=== PATIENT | male | born 1965 | race Caucasian/White ===

== ENCOUNTER 2020-07-29 08:56 | Outpatient (CLI) | payer OTHER, SELFPAY ==
--- NOTE | 2020-09-13 10:31 | WPDHOMESLEEP ---
Sleep Study - Home Unattended Date of Study: 07/29/20 Ordering Provider: Roselia Garcia MD Interpreting Physician: Roselia Garcia MD Home Sleep Study Type: Apnea Link Air Height: 1.8 m Weight: 113.398 kg Body Mass Index: 34.8 Neck Circumference (inches): 19 [place]: 9 Reason for Sleep Study Fatigue, excessive daytime sleepiness Sleep History Wayne Mckinney is a 55 year old male with loud snoring, restless sleep multiple awakenings at night, and need for naps during the day. He does have dreams at night. Does have leg cramps and Charley horses. He does not grind his teeth. He had sleepwalking in childhood. Both parents had sleep apnea as well as his brother. He is tired at even after sleeping 8-10 hours. It is getting worse over the last 4-5 years. He rarely has trouble sleep with a cold. He does not wake up gasping for breath at night. He rarely has breathing problems at night reported to him by others. He rarely sweats excessively at night. He does not notice his heart pounding or beating irregularly night. He constantly falls asleep during the day, rarely involuntarily, never while driving. He does not fall asleep during physical effort. He does not have loss of muscle tone with strong emotion. He occasionally has trouble during the day due S of sleepiness, works as a [employer] ticket cashier he does not feel paralyzed on waking or falling asleep and does not have vivid dreamlike scenes upon awakening or falling asleep. He is never a freight to go to sleep. He does not have nightmares. He occasionally remembers his dreams. He occasionally has racing thoughts. He frequently feels sad or depressed. He never has anxiety. He constantly has muscular tension. He frequently notices parts of his body jerking. He occasionally kicks at night. He occasionally has leg pain during the night and aching and crawling feelings in his legs at night. He does not have morning jaw pain and does not grind his teeth at night. He constantly is bothered by pain during the day, occasionally is awakened by pain at night. He constantly wakes up feeling stiff in the morning with sore achy muscles and pain in the neck and spine. He has fatigue, memory problems, concentration difficulties, bowel disturbances and depression on occasion. Normal bedtime is 10:00 p.m.. He falls asleep within 10 minutes. He wakes about twice a week to urinate at night. He wakes in the morning between 5:30 and 6:00 a.m. After he gets the kids up for school normally around 8:30 or 9:00 am he will come home and take a nap from 9 until 12 noon. Naps are not refreshing. He is usually drowsy in the morning for 2 hours or longer. He feels better in the afternoon compared to other times of day Habits: He never smoked tobacco; He drinks caffeine, 3-4 cans of soda, 12-oz; no coffee; 1 alcoholic beverage a week. no recreational drugs. [facility] Past Medical History Medical History (Updated 09/13/20 @ 10:38 by Roselia Garcia MD) Arthritis Carpal tunnel syndrome Chronic sinusitis H/O bronchitis Hyperlipidemia Neuropathy Surgical History Surgical History (Updated 09/13/20 @ 11:04 by Roselia Garcia MD) History of knee surgery right patellar tendon repair 2009 Family History Family History Mother Heart disease, Onset Age: 79 CHF Obstructive sleep apnea Diabetes mellitus Hypertension Hyperlipidemia Father Obstructive sleep apnea Afib Hypertension Sibling Obstructive sleep apnea Hypertension Liver disease Social History Social History Social History: to Kasandra, RN who works in our ER; self-employed, lawn business, construction, 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
[2020-09-13 11:39] VITALS: BMI 34.8
== END 2020-07-29 08:57 | disposition home or self-care (01) ==
LOC: ANHCSM 08:56
PROVIDERS: PCP Family Medicine; Visit Provider Internal Medicine Critical Care Medicine
DX: G47.10 Hypersomnia, unspecified (principal)
CPT/HCPCS: 95806

== ENCOUNTER 2020-08-28 07:33 | Outpatient (CLI) | payer OTHER, SELFPAY ==
[2020-08-28 08:13] LABS: Alanine Aminotransferase 28 U/L (4-50); Albumin Level 4.6 g/dL (3.5-5.1); Alkaline Phosphatase 45 U/L (38-126); Anion Gap 7 mmol/L (8-16); Aspartate Amino Transferase 28 U/L (17-59); Bilirubin,Total 0.6 mg/dL (0.2-1.3); Blood Urea Nitrogen 28 mg/dL (9-20); Calcium 9.1 mg/dL (8.4-10.2); Carbon Dioxide 30 mmol/L (22-30); Chloride 102 mmol/L (98-107); Cholesterol 188 mg/dL (0-200); Estimated Glomerular Filt Rate > 60; Glucose 92 mg/dL (75-110); HDL Direct 58 mg/dL; Potassium 4.4 mmol/L (3.4-5.0); Sodium 139 mmol/L (137-145); Triglycerides 178 mg/dL (<150)
[2020-08-28 08:24] LABS: LDL Cholesterol Direct 111 mg/dL
== END 2020-08-28 07:34 | disposition home or self-care (01) ==
PROVIDERS: PCP Family Medicine; Visit Provider Family Medicine
DX: E78.5 Hyperlipidemia, unspecified (principal); N40.1 Benign prostatic hyperplasia with lower urinary tract symptoms; R39.12 Poor urinary stream
CPT/HCPCS: 36415; 80053; 80061; 84153

== ENCOUNTER → 2020-10-22 01:48 | Outpatient (CLI) | payer OTHER, SELFPAY ==
[2020-10-23 08:28] LABS: SARS-CoV-2 RNA PCR Negative
== END ==
PROVIDERS: PCP Family Medicine; Visit Provider Internal Medicine Critical Care Medicine
DX: R68.89 Other general symptoms and signs (principal); Z20.822 Contact with and (suspected) exposure to COVID-19
CPT/HCPCS: C9803; U0003; U0005

== ENCOUNTER 2020-10-25 09:09 | Outpatient (CLI) | payer OTHER, SELFPAY ==
--- NOTE | 2020-11-12 17:31 | WPDSLEEPSTUD ---
Sleep Study Date of Study: 10/25/20 Ordering Provider: Roselia Garcia MD Interpreting Physician: Roselia Garcia MD Sleep Study Type: CPAP Titration Height: 1.78 m Weight: 113.398 kg Body Mass Index: 35.9 Neck Circumference (inches): 18 [place]: 18 Reason for Sleep Study Home Sleep Test July 29, 2020 with moderate obstructive sleep apnea, AHI 15, desaturation to 76%, here for CPAP titration Sleep History Wayne Mckinney is a 55 year old man with ALEX diagnosed on a home sleep test July 29, 2020 with AHI 15 and desaturation to 76%. He has a history of loud snoring, restless sleep with multiple awakenings at night, and he takes naps during the day. He does have dreams at night. He has leg cramps at night. He does not grind his teeth. He had sleepwalking in childhood. Both parents had sleep apnea as well as his brother. He is tired at even after sleeping 8-10 hours. It is getting worse over the last 4-5 years. He rarely has trouble sleeping with a cold. He does not wake up gasping for breath at night. He rarely has breathing problems at night reported to him by others. He rarely sweats excessively at night. He does not notice his heart pounding or beating irregularly night. He constantly falls asleep during the day, rarely involuntarily, never while driving. He does not fall asleep during physical effort. He does not have loss of muscle tone with strong emotion. He occasionally has trouble during the day due due excessive sleepiness, works as a voice network engineer. He does not feel paralyzed on waking or falling asleep and does not have vivid dreamlike scenes upon awakening or falling asleep. He is never afraid to go to sleep. He does not have nightmares. He occasionally remembers his dreams. He occasionally has racing thoughts. He frequently feels sad or depressed. He never has anxiety. He constantly has muscular tension. He frequently notices parts of his body jerking. He occasionally kicks at night. He occasionally has leg pain during the night and aching and crawling feelings in his legs at night. He does not have morning jaw pain and does not grind his teeth at night. He constantly is bothered by pain during the day, occasionally is awakened by pain at night. He constantly wakes up feeling stiff in the morning with sore achy muscles and pain in the neck and spine. He has fatigue, memory problems, concentration difficulties, bowel disturbances and depression on occasion. Normal bedtime is 10:00 p.m. falling asleep within 10 minutes. He wakes about twice a week during the night to urinate. He wakes in the morning between 5:30 and 6:00 a.m. After he gets the kids up for school normally around 8:30 or 9:00 a.m., he will come home and take a nap from 9:00 a.m. until 12 noon. Naps are not refreshing. He is usually drowsy in the morning for 2 hours or longer. He feels better in the afternoon compared to other times of day Habits: He never smoked tobacco; He drinks caffeine, 3-4 cans of soda, 12-oz; no coffee; 1 alcoholic beverage a week. no recreational drugs. [facility] Past Medical History Medical History Arthritis Carpal tunnel syndrome Chronic sinusitis H/O bronchitis Hyperlipidemia Neuropathy Surgical History Surgical History History of knee surgery right patellar tendon repair 2009 Family History Family History Mother Heart disease, Onset Age: 79 CHF Obstructive sleep apnea Diabetes mellitus Hypertension Hyperlipidemia Father Obstructive sleep apnea Afib Hypertension Sibling Obstructive sleep apnea Hypertension Liver disease Social History Social History Social History: to Kasandra, RN who works in our ER; self-employed, lawn business, construction, takes
[2020-11-13 18:02] VITALS: BMI 35.9
== END 2020-10-25 09:10 | disposition home or self-care (01) ==
LOC: ANHCSM 09:10
PROVIDERS: PCP Family Medicine; Visit Provider Internal Medicine Critical Care Medicine
DX: G47.33 Obstructive sleep apnea (adult) (pediatric) (principal)
CPT/HCPCS: 95811

== ENCOUNTER 2023-07-06 09:02 | Outpatient (CLI) | payer OTHER, SELFPAY ==
[2023-07-08 12:30] LABS: Amphetamines NEGATIVE ng/mL (<500); Barbiturates NEGATIVE ng/mL (<300); Benzodiazepines NEGATIVE ng/mL (<100); Cocaine Metabolite NEGATIVE ng/mL (<150); Marijuana Metabolite NEGATIVE ng/mL (<20); Methadone Metabolite NEGATIVE ng/mL (<100); Opiates POSITIVE ng/mL (<100); Oxidant NEGATIVE mcg/mL (<200); pH 5.7 (4.5-9.0)
== END 2023-07-06 09:03 | disposition home or self-care (01) ==
PROVIDERS: PCP Family Medicine; Visit Provider Family Medicine
DX: F11.90 Opioid use, unspecified, uncomplicated (principal)
CPT/HCPCS: 80307

== ENCOUNTER 2023-09-21 09:07 | Outpatient (CLI) | payer OTHER, SELFPAY ==
[2023-09-21 10:36] LABS: Basophils Absolute Auto 0.1 K/mm3 (0.0-0.1); Basophils Percent Auto 1.4 % (0.2-1.2); Eosinophils Absolute Auto 0.3 K/mm3 (0-0.3); Eosinophils Percent Auto 3.9 % (0-4.4); Hematocrit 45.3 % (42.0-52.0); Hemoglobin 14.7 g/dL (14.0-18.0); Immature Granulocyte Absolute 0.06 K/mm3 (0.00-0.031); Immature Granulocyte Percent A 0.9 % (0-0.5); Lymphocytes Absolute Auto 2.22 K/mm3 (0.9-3.2); Lymphocytes Percent Auto 33.5 % (18.3-44.2); Mean Corpuscular HGB Conc 32.5 g/dl (32-36); Mean Corpuscular Hemoglobin 28.1 pg (26-34); Mean Corpuscular Volume 86.5 fl (80-100); Mean Platelet Volume 9.9 fl (7.4-10.4); Monocytes Absolute Auto 0.5 K/mm3 (0.1-0.6); Monocytes Percent Auto 7.4 % (2.6-8.5); Neutrophils Absolute Auto 3.5 K/mm3 (1.3-6.7); Neutrophils Percent Auto 52.9 % (45.5-73.1); Platelet Count Result 297 k/mm3 (150-375); Red Blood Count 5.24 M/mm3 (4.6-6.20); White Blood Count 6.6 K/mm3 (4.5-10.0)
[2023-09-21 10:53] LABS: Alanine Aminotransferase 34 U/L (6-50); Albumin Level 4.6 g/dL (3.5-5.1); Alkaline Phosphatase 56 U/L (38-126); Anion Gap 10 mmol/L (8-16); Aspartate Amino Transferase 34 U/L (17-59); Bilirubin,Total 0.6 mg/dL (0.2-1.3); Blood Urea Nitrogen 24 mg/dL (9-20); Calcium 9.3 mg/dL (8.4-10.2); Carbon Dioxide 25 mmol/L (22-30); Chloride 105 mmol/L (98-107); Cholesterol 176 mg/dL (0-200); Estimated Glomerular Filt Rate > 60; Glucose 95 mg/dL (65-110); HDL Direct 50 mg/dL; Sodium 140 mmol/L (137-145); Triglycerides 141 mg/dL (<150)
[2023-09-21 11:04] LABS: LDL Cholesterol Direct 103 mg/dL
[2023-09-21 11:17] LABS: Microalbumin Urine Random 146.3 mg/L (0-16.7)
[2023-09-21 11:22] LABS: Prostate Specific Antigen 1.3 ng/mL (< OR = 4.0)
[2023-09-21 11:30] LABS: Thyroid Stimulating Hormone Reflex 0.739 uIU/mL (0.465-4.68)
[2023-09-21 11:37] LABS: Creatinine Urine 433.8 mg/dL; MALB Creatinine Ratio 33.7 mg/g (0-30)
[2023-09-25 11:18] LABS: Testosterone Free 73.4 pg/mL (35.0-155.0); Testosterone Total 503 ng/dL (250-1100)
== END 2023-09-21 09:08 | disposition home or self-care (01) ==
LOC: ANHLAB 09:12
PROVIDERS: PCP Family Medicine; Visit Provider Family Medicine
DX: Z00.00 Encounter for general adult medical examination without abnormal findings (principal); Z12.5 Encounter for screening for malignant neoplasm of prostate; I10 Essential (primary) hypertension; E78.5 Hyperlipidemia, unspecified
CPT/HCPCS: 36415; 80053; 80061; 82043; 84153; 84402; 84403; 84443; 85025; G0103

== ENCOUNTER 2024-02-01 10:15 | Outpatient (RCR) | payer OTHER, SELFPAY ==
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
--- NOTE | 2023-11-15 13:12 | OPREHPOC ---
Outpatient Therapy Plan of Care This is a Multidisciplinary Plan of Care that may contain components documented by all disciplines (PT, OT, and ST.) PT Problem 1 PT Problem #1 Knowledge Deficit PT Goal 1 Goal Pt. will be independent with a HEP addressing postural control and spinal mobility. Target Visit 2 PT Problem 2 PT Problem #2 Pain PT Goal 1 Goal Pt. will report pain levels at 5/10 at worst and neck, mid back and low back with all IADL's. Target Visit 6 PT Problem 3 PT Problem #3 Impaired Range of Motion PT Goal 1 Goal pt. will demonstrate improved thoracic accessory mobility upon palpation. Target Visit 10 PT Problem 4 PT Problem #4 Impaired Functional Mobil PT Goal 1 Goal Pt. will improve Modified Oswestry Score to less than 20% limitation.
--- NOTE | 2024-01-11 12:30 | OPREHPOC ---
Outpatient Therapy Plan of Care This is a Multidisciplinary Plan of Care that may contain components documented by all disciplines (PT, OT, and ST.) PT Problem 1 PT Problem #1 Knowledge Deficit PT Goal 1 Goal Pt. will be independent with a HEP addressing postural control and spinal mobility. Target Visit 2 Progress Met PT Problem 2 PT Problem #2 Pain PT Goal 1 Goal Pt. will report pain levels at 5/10 at worst and neck, mid back and low back with all IADL's. Target Visit 6 Progress Partially Met Comment Improving but not consistent PT Problem 3 PT Problem #3 Impaired Range of Motion PT Goal 1 Goal pt. will demonstrate improved thoracic accessory mobility upon palpation. Target Visit 10 Progress Partially Met Comment Rigid PA palpation with over pressure PT Problem 4 PT Problem #4 Impaired Functional Mobil PT Goal 1 Goal Pt. will improve Modified Oswestry Score to less than 20% limitation. Target Visit 12 Progress Not Met Comment 22% currently
--- NOTE | 2024-01-11 12:30 | PTOPPROG ---
Assessment and note entered by Jon Bird, PT Evaluation Information Assessment Status Progress Diagnosis low back pain, bilateral thoracic pain Onset 10/25/23 Subjective Information Patient reports that he feels he is doing better overall. Feels that he has restored some motion in his shoulders and is more comfortable with overhead activity at this time. Would like to continue therapy has he feels the needling and mobilization has been very effective from a subjective standpoint. Assessment PT Clinical Summary Patient has seen some improvement in cervical pain and mobility of shoulders. This has decreased the frequency of pain at this time to allow for improve AD:L ability but patient is still hindered and presents with moderate amount of spinal rigidity affecting gross function and pain. Will benefit from continuation of therapy to address these deficits moving forward. Plan of Care Interventions Electrical Stimulation,Hot Pack/Cold Pack,Manual Therapy,Neuro Re-education,Patient/Caregiver Education,Therapeutic Activities,Therapeutic Exercise Other Interventions dry needling PT Services Indicated Yes Treatment Frequency and 1-2x/week for 8 visits Duration These treatments will address the objective and functional deficits as defined above. The patient will be advanced safely and appropriately in order for the patient to progress towards his/her prior level of function. Additional exercises will be introduced and as well as a comprehensive home exercise program upon discharge, if needed, ?to ensure carryover of functional gains achieved in the clinic. This treatment plan has been reviewed and agreement upon by the patient.
== END 2024-02-13 23:59 | disposition home or self-care (01) ==
LOC: ANHGOSHPT 10:15
PROVIDERS: PCP Family Medicine; Visit Provider Family Medicine
DX: M54.42 Lumbago with sciatica, left side (principal); M54.41 Lumbago with sciatica, right side; M54.6 Pain in thoracic spine; G89.29 Other chronic pain
CPT/HCPCS: 97110; 97140; 97161; 99199

== ENCOUNTER 2024-06-19 09:41 | Outpatient (CLI) | payer OTHER, SELFPAY ==
--- NOTE | ~2024-06-19 | MR_ITS ---
EXAMINATION: MR knee RT wo con DATE: 06/19/2024 10:22 INDICATION: Unspecified injury of right lower leg, initial encounter. TECHNIQUE: Magnetic resonance imaging (MRI) of the right knee was performed without intravenous contr ast. Sequences included axial PD-weighted FS FSE, coronal PD-weighted FSE and PD-weighted FS FSE, sag ittal PD-weighted FSE, and sagittal T2-weighted FS FSE. COMPARISON: Right knee radiographs 05/29/24, right knee MRI 07/01/2010 FINDINGS: Medial compartment: Body and posterior horn of medial meniscus are small, which may be changes of partial meniscectomy. T here is cartilage surface irregularity of tibial condyle and femoral condyle. Osteophytes are noted. Lateral compartment: There are undersurface horizontal tears of the anterior horn and posterior horn of lateral meniscus. There is cartilage surface irregularity of tibial condyle and femoral condyle. Patellofemoral compartment: There is full-thickness cartilage loss of patella involving the lateral facet and median ridge with m ild subchondral edema-like marrow signal intensity. There is deep partial-thickness cartilage loss of patellar medial facet. There is full-thickness cartilage loss of lateral trochlea and deep partial-t hickness cartilage loss of medial and central trochlea. Ligaments and tendons: The anterior and posterior cruciate ligaments are normal. Medial collateral ligament and fibular joselo ateral ligament are intact. There is thickening and increased signal involving iliotibial band. There is thickening of patellar tendon and quadriceps tendon with surgical changes. Fluid: There is a moderate-sized knee joint effusion. There is a moderate-sized ruptured Forde's cyst. IMPRESSION: 1. Severe chondrosis of patellofemoral compartment and mild chondrosis of medial and lateral compartm ents. 2. Tear of lateral meniscus. 3. Small medial meniscus, most likely changes of medial meniscectomy. 4. Moderate-sized knee joint effusion. 5. Moderate-sized ruptured Forde's cyst. Reviewed, dictated and finalized at location B. IMPRESSION: 1. Severe chondrosis of patellofemoral compartment and mild chondrosis of media l and lateral compartments. 2. Tear of lateral meniscus. 3. Small medial meniscus, most likely changes of medial meniscectomy. 4. Moderate-sized knee joint effusion. 5. Moderate-sized ruptured Forde's cyst.
== END 2024-06-19 09:42 | disposition home or self-care (01) ==
LOC: ANHIMG 09:42
PROVIDERS: PCP Family Medicine; Visit Provider Orthopaedic Surgery
DX: M22.41 Chondromalacia patellae, right knee (principal); S83.281A Other tear of lateral meniscus, current injury, right knee, initial encounter; M25.461 Effusion, right knee; M71.21 Synovial cyst of popliteal space [Baker], right knee
CPT/HCPCS: 73721

== ENCOUNTER 2024-07-05 07:01 | Outpatient (CLI) | payer OTHER, SELFPAY ==
[2024-07-05 08:12] LABS: Basophils Absolute Auto 0.1 K/mm3 (0.0-0.1); Basophils Percent Auto 1.3 % (0.2-1.2); Eosinophils Absolute Auto 0.2 K/mm3 (0-0.3); Eosinophils Percent Auto 3.9 % (0-4.4); Hematocrit 46.6 % (42.0-52.0); Hemoglobin 15.4 g/dL (14.0-18.0); Immature Granulocyte Absolute 0.06 K/mm3 (0.00-0.031); Lymphocytes Absolute Auto 1.73 K/mm3 (0.9-3.2); Lymphocytes Percent Auto 27.9 % (18.3-44.2); Mean Corpuscular Hemoglobin 28.8 pg (26-34); Mean Corpuscular Volume 87.3 fl (80-100); Mean Platelet Volume 9.7 fl (7.4-10.4); Monocytes Absolute Auto 0.4 K/mm3 (0.1-0.6); Monocytes Percent Auto 6.9 % (2.6-8.5); Neutrophils Absolute Auto 3.7 K/mm3 (1.3-6.7); Platelet Count Result 273 k/mm3 (150-375); Red Blood Count 5.34 M/mm3 (4.6-6.20); Red Cell Distribution Width 12.9 % (11.5-14.5); White Blood Count 6.2 K/mm3 (4.5-10.0)
[2024-07-05 09:05] LABS: Alanine Aminotransferase 30 U/L (6-50); Albumin Level 4.8 g/dL (3.5-5.1); Alkaline Phosphatase 60 U/L (38-126); Anion Gap 9 mmol/L (4-12); Aspartate Amino Transferase 37 U/L (17-59); Bilirubin,Total 0.6 mg/dL (0.2-1.3); Blood Urea Nitrogen 22 mg/dL (9-20); Calcium 9.2 mg/dL (8.4-10.2); Carbon Dioxide 29 mmol/L (22-30); Chloride 102 mmol/L (98-107); Cholesterol 177 mg/dL (0-200); Estimated Glomerular Filt Rate > 60; Glucose 92 mg/dL (65-110); HDL Direct 56 mg/dL; Potassium 4.4 mmol/L (3.4-5.0); Sodium 140 mmol/L (137-145); Triglycerides 196 mg/dL (<150)
[2024-07-05 09:15] LABS: LDL Cholesterol Direct 94 mg/dL
[2024-07-05 10:09] LABS: Creatinine Urine 188.7 mg/dL
[2024-07-05 10:16] LABS: Microalbumin Urine Random 30.1 mg/L (0-16.7)
[2024-07-07 17:38] LABS: Prostate Specific Antigen 0.7 ng/mL (< OR = 4.0)
== END 2024-07-05 07:02 | disposition home or self-care (01) ==
PROVIDERS: PCP Family Medicine; Visit Provider Family Medicine
DX: E78.5 Hyperlipidemia, unspecified (principal); Z12.5 Encounter for screening for malignant neoplasm of prostate; I10 Essential (primary) hypertension
CPT/HCPCS: 36415; 80053; 80061; 82043; 84153; 85025

== ENCOUNTER 2025-01-22 09:28 | Outpatient (CLI) | payer OTHER, SELFPAY ==
--- NOTE | ~2025-01-22 | XR_ITS ---
Cervical Spine: AP, lateral, open-mouth views Clinical History: Pain Findings: The normal lordotic curve is maintained. The vertebral bodies and posterior elements appea r intact. There is mild to moderate degenerative disc narrowing at C4-C5, C5-C6, and C6-C7. Moderate facet arthropathy present. Pre-vertebral soft tissues are unremarkable. Impression: Moderate degenerative spondylosis, as above. Reviewed, dictated and finalized at location . Impression: Moderate degenerative spondylosis, as above.
--- NOTE | ~2025-01-22 | XR_ITS ---
XR hip RT 1V 01/22/2025 12:27 Indication: Right hip pain Procedure: AP view of the right hip Comparison: No prior studies for comparison. Findings: No fracture, subluxation or dislocation. No soft tissue abnormality. No foreign bodies. No joint space narrowing. There is anatomic alignment. Impression: 1: No significant bone or joint abnormality. Reviewed, dictated and finalized at location A. Impression: 1: No significant bone or joint abnormality.
--- NOTE | ~2025-01-22 | XR_ITS ---
AP and lateral views of the left hip Clinical history: Pain Findings: No acute fracture or dislocation is seen. Osseous alignment is anatomic. There is mild dege nerative change of the left hip joint. Soft tissues are unremarkable. Impression: Mild left hip joint degenerative change. Reviewed, dictated and finalized at location . Impression: Mild left hip joint degenerative change.
--- NOTE | ~2025-01-22 | XR_ITS ---
Thoracic spine: Clinical Indication: Back pain AP and lateral views were performed. No fracture is seen. There is normal alignment of the vertebrae. The intervertebral disc spaces appe ar normal. There is DISH of the mid to lower thoracic spine. Paravertebral soft tissues appear normal . Impression: DISH of the mid to lower thoracic spine. Reviewed, dictated and finalized at location . Impression: DISH of the mid to lower thoracic spine.
--- NOTE | ~2025-01-22 | XR_ITS ---
Lumbosacral Spine: AP and lateral views Clinical History: Pain Findings: The normal lordotic curve is maintained. No fracture or subluxation. There is moderate to a dvanced degenerative disc narrowing throughout the spine, especially at L3-L4. There is moderate to a dvanced facet arthropathy. The sacroiliac joints are normally outlined. Impression: Moderate to advanced degenerative spondylosis throughout the lumbar spine. Reviewed, dictated and finalized at location M. Impression: Moderate to advanced degenerative spondylosis throughout the lumbar spine.
--- OUTSIDE RECORDS SUMMARY | 2025-01-22 10:18 | XMS_ITS | Clinical Summary ---
Author Organization [facility] Address [address] Attn: Epic Prelude ADT [place] [id number] Care Team Providers Care Business Services Intern Name Role Phone Unavailable Primary Care Provider Unavailabl e Allergies No known active allergies Medications amitriptyline (ELAVIL) 25 mg tablet Take 1 tablet (25 mg total) by mouth nightly 90 Tablet 3 07/31/2024 10:45 AM TREASURY ASSISTANT 09/24/2023 Active HYDROcodone-kizzy taminophen (NORCO) 7.5-325 mg Tablet Take 1-2 tablets by mouth every 6 (six) hours as needed for pain 180 Tablet 11/14/2023 4:40 PM CDT 11/14/2023 Active HYDROcodone-kizzy taminophen (NORCO) 7.5-325 mg Tablet Take 1 to 2 tablets by mouth every 6 (six) hours as needed for pain 180 Tablet 01/05/2024 12:55 PM CDT 01/04/2024 Active Encounters Date Type Department Care Team Description 10/29/2024 External Device Data [facility] Provider, Abstract 10/28/2024 External Device Data [facility] Provider, Abstract from Last 3 Months Social History Tobacco Use Types Packs/Day Years Used Date Smoking Tobacco: Never Assessed Sex and Gender Information Value Date Recorded Sex Assigned at Not on file Legal Sex Male 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 Gender Identity Not on file Sexual Orientation Not on file Plan of Treatment Health Maintenance Due Date Last Done Comments DTAP/TDAP/TD VACCINES (1 - Tdap) 1985 HEPATITIS B VACCINES (1 of 3 - 19+ 3-dose series) 01/19 COLORECTAL SCREENING 2011 Colorectal Cancer Screening 2011 FIT-DNA Q 3 years 2011 FIT/FOBT Q 1 year 2011 Flex Sig/CT Colonography Q 5 years 2011 ZOSTER VACCINE (1 of 2) 02/10/2016 INFLUENZA VACCINE (#1) [address] [place] [address] RX [employer] Member Subscriber Plan / Payer (Ef fective 2023-Present) Name:Wayne Mckinney Relation to Subscriber:Self Name:Wayne Mckinney Subscriber ID:Not on file Payer ID:Not on file Type:RX Commercial Address: [place]
--- OUTSIDE RECORDS SUMMARY | 2025-01-22 10:18 | XMS_ITS | Clinical Summary ---
Author Organization [facility] Care Team Providers Care Postdoctoral Scientist Name Role Phone Unavailable Primary Care Provider Unavailabl e Social History Tobacco Use Types Packs/Day Years Used Date Smoking Tobacco: Never Assessed Sex and Gender Information Value Date Recorded Sex Assigned at Not on file Legal Sex Male 12:58 PM CDT Gender Identity Not on file Sexual Orientation Not on file Plan of Treatment Health Maintenance Due Date Last Done Comments Hepatitis C Virus (HCV) Screening 1966 Hepatitis B Immunization (1 of 3 - 19+ 3-dose series) 1985 Colonoscopy 2011 Colorectal Cancer Screening 2011 Cologuard 02/10/2016 Immunochemical Fecal Occult Blood 02/10/2016 Pneumococcal Immunization (50+ years) (1 of 1 - PCV) 02/10/2016 SARS-COV-2 Immunization ( - season) 2024 05/24/2021, 11/06/2020, 10/16/2020 Influenza Immunization (Season Ended) 2025 06/08/2021, 05/20/2021, 06/02/2020, Additional history exists Respiratory Syncytial Virus (RSV) Immunization (Adult) (1 - 1-dose 75+ series) 2041 Zoster Immunization Completed 08/06/2019, 9 DTaP/Tdap/Td Immunization Discontinued 07/06/2021 TdaP Immunization Completed 07/06/2021 Human Papillomavirus (HPV) Immunization Aged Out No longer eligible based on patient's age to complete this topic Meningococcal Immunization (ACWY) Aged Out No longer eligible based on patient's age to complete this topic Rotavirus Immunization Aged Out No lo nger eligible based on patient's age to complete this topic
== END 2025-01-22 09:29 | disposition home or self-care (01) ==
DX: M48.14 Ankylosing hyperostosis [Forestier], thoracic region (principal); M47.816 Spondylosis without myelopathy or radiculopathy, lumbar region; M25.552 Pain in left hip; M47.812 Spondylosis without myelopathy or radiculopathy, cervical region; M54.50 Low back pain, unspecified; G89.29 Other chronic pain
CPT/HCPCS: 72040; 72070; 72100; 73501; 73502